=== PATIENT | female | born 1935 | race Caucasian/White ===

== ENCOUNTER 2023-09-20 15:54 | Inpatient (IN) | payer MEDICARE, OTHER ==
[~2023-09-20] VITALS: Ht 165.1 cm; Wt 81.6 kg
[2023-09-20 16:00] VITALS: BP_SYST 150; PULSE 80; RESP 20; TEMP 98; O2SAT 97
[2023-09-20] MEDS ORDERED: GENTAMICIN IN NACL, ISO-OSM 50 ML IV ONE (16:15)
[2023-09-20 17:07] LABS: BASOPHILS % (AUTO) 0.8 % (0.0-2.0); EOSINOPHILS # (AUTO) 0.1 K/uL (0.0-0.4); EOSINOPHILS % (AUTO) 2.3 % (0.0-4.0); HEMATOCRIT 40.2 % (36-48); HEMOGLOBIN 13.1 g/dL (12.0-16.0); LYMPHOCYTES # (AUTO) 1.3 K/uL (1.0-5.5); LYMPHOCYTES % (AUTO) 27.1 % (20.5-51.5); MEAN CORPUSCULAR HEMOGLOBIN 30 pg (27-31); MEAN CORPUSCULAR HGB CONC 33 % (32-36); MEAN CORPUSCULAR VOLUME 93 fL (79.0-98.0); MONOCYTES # (AUTO) 0.6 K/uL (0.0-1.0); MONOCYTES % (AUTO) 12.3 % (1.7-9.3); NEUTROPHILS # (AUTO) 2.7 K/uL (1.8-7.7); NEUTROPHILS % (AUTO) 57.5 % (40.0-70.0); PLATELET COUNT (AUTO) 206 K/uL (130-430); RED BLOOD CELL COUNT(AUTO) 4.31 MIL/uL (4.2-6.2); RED CELL DISTRIBUTION WIDTH 13.9 % (9.0-15.0); WHITE BLOOD COUNT (AUTO) 4.7 K/uL (4.8-10.8)
[2023-09-20 17:31] LABS: ANION GAP 8 (5-15); CALCIUM 9.3 mg/dL (8.4-11.0); CARBON DIOXIDE 28 mmol/L (23-29); CHLORIDE 104 mmol/L (98-107); CREATININE 0.98 mg/dL (0.55-1.30); GLUCOSE 99 mg/dL (74-106); POTASSIUM 4.1 mmol/L (3.5-5.1); SODIUM SERUM 140 mmol/L (136-145); UREA NITROGEN, BLOOD 25 mg/dL (8-21)
[2023-09-20 19:06] LABS: BILIRUBIN,URINE NEGATIVE (NEGATIVE); BLOOD, URINE 2+ (NEGATIVE); CLARITY/URINE SL CLOUDY (CLEAR); COLOR,URINE YELLOW (YELLOW); GLUCOSE,URINE NEGATIVE (NEGATIVE); KETONES,URINE NEGATIVE (NEGATIVE); LEUKOCYTE ESTERASE ,URINE 1+ (NEGATIVE); NITRITE, URINE NEGATIVE (NEGATIVE); PROTEIN URINE TRACE (NEGATIVE); UROBILINOGEN,URINE 0.2 (0.2-1.0)
[2023-09-20 19:18] LABS: BACTERIA,URINE MODERATE /HPF (None Seen); MUCUS,URINE None Seen /LPF (None Seen); RBC,URINE 0-3 /HPF (0-3)
[2023-09-20] MEDS ORDERED: APIX5TAB PO (19:42)
[2023-09-20] MEDS ORDERED: DONE5TAB33 PO (19:42)
[2023-09-20] MEDS ORDERED: PYRI50CA PO (19:42)
[2023-09-20] MEDS ORDERED: MEMA10TA PO (19:42)
[2023-09-20] MEDS ORDERED: METO25TA6 PO (19:42)
[2023-09-20] MEDS ORDERED: FOLI-43 PO (19:42)
[2023-09-20] MEDS ORDERED: CARB1TAB33 PO (19:42)
[2023-09-20] MEDS ORDERED: LOSA-415 PO (19:42)
[2023-09-20] MEDS ORDERED: cloNIDine HCL 0.1 MG TABLET PO PRN (22:30)
[2023-09-20] MEDS ORDERED: HYDROcodone/ACETAMIN 5-325 MG TAB (NORCO/ VICODIN) PO PRN (22:30)
[2023-09-20] MEDS ORDERED: ONDANSETRON HCL 4 MG/2 ML VIAL IVP PRN (22:30)
[2023-09-20] MEDS ORDERED: NALOXONE HCL 0.4 MG/ML AMP (NARCAN) IVP PRN (22:30)
[2023-09-20] MEDS ORDERED: PIPERACILLIN/TAZOBACTAM 3.375 GM/VIAL (ZOSYN) IV ONE (23:20)
[2023-09-20] MEDS: CARBIDOPA/LEVODOPA 25/100 MG TABLET PO SCH (23:45)
[2023-09-20] MEDS: METOPROLOL TARTRATE 25 MG TABLET PO SCH (23:46)
[2023-09-20] MEDS: APIXABAN 2.5 MG TABLET PO SCH (23:47)
[2023-09-20] MEDS: PIPERACILLIN/TAZO 3.375/DEX-IS 50 ML IV SCH (23:48)
[2023-09-21] VITALS (7 sets, daily range): BP systolic 126–174; PULSE 56–88; RESP 17–18; TEMP 97.1–98.6; O2SAT 94–98
[2023-09-21] MEDS: PIPERACILLIN/TAZO 3.375/DEX-IS 50 ML IV SCH (06:06)
[2023-09-21 07:43] LABS: BASOPHILS % (AUTO) 0.7 % (0.0-2.0); EOSINOPHILS # (AUTO) 0.1 K/uL (0.0-0.4); EOSINOPHILS % (AUTO) 2.7 % (0.0-4.0); HEMATOCRIT 41.7 % (36-48); HEMOGLOBIN 13.3 g/dL (12.0-16.0); LYMPHOCYTES # (AUTO) 1.3 K/uL (1.0-5.5); LYMPHOCYTES % (AUTO) 27.2 % (20.5-51.5); MEAN CORPUSCULAR HEMOGLOBIN 30 pg (27-31); MEAN CORPUSCULAR HGB CONC 32 % (32-36); MEAN CORPUSCULAR VOLUME 93 fL (79.0-98.0); MONOCYTES # (AUTO) 0.5 K/uL (0.0-1.0); MONOCYTES % (AUTO) 11.4 % (1.7-9.3); NEUTROPHILS # (AUTO) 2.7 K/uL (1.8-7.7); PLATELET COUNT (AUTO) 191 K/uL (130-430); RED CELL DISTRIBUTION WIDTH 13.7 % (9.0-15.0); WHITE BLOOD COUNT (AUTO) 4.6 K/uL (4.8-10.8)
[2023-09-21 07:50] LABS: ERYTHROCYTE SEDIMENTATION RATE 6 MM/HR (0-20)
[2023-09-21 08:07] LABS: ALANINE AMINOTRANSFERASE 7 U/L (12-78); ALBUMIN 3.4 g/dL (3.4-4.8); ANION GAP 8 (5-15); ASPARTATE AMINOTRANSFERASE 13 U/L (10-37); CALCIUM 9.4 mg/dL (8.4-11.0); CARBON DIOXIDE 29 mmol/L (23-29); CHLORIDE 106 mmol/L (98-107); CREATININE 0.85 mg/dL (0.55-1.30); FREE T4 (FREE THYROXINE) 1.1 ng/dL (0.6-1.6); GLUCOSE 95 mg/dL (74-106); SODIUM SERUM 143 mmol/L (136-145); THYROID STIMULATING HORMONE 0.87 uIu/mL (0.34-4.82); TOTAL BILIRUBIN 0.7 mg/dL (0.0-1.0); TOTAL PROTEIN, SERUM 6.3 g/dL (6.4-8.3); UREA NITROGEN, BLOOD 17 mg/dL (8-21)
[2023-09-21] MEDS: APIXABAN 2.5 MG TABLET PO SCH ×2 (10:13→21:02)
[2023-09-21] MEDS: METOPROLOL TARTRATE 25 MG TABLET PO SCH ×2 (10:14→21:00)
[2023-09-21] MEDS: FOLIC ACID 1 MG TABLET PO SCH (10:14)
[2023-09-21] MEDS: MEMANTINE HCL 5 MG TABLET PO SCH ×2 (10:15→20:59)
[2023-09-21] MEDS: LOSARTAN POTASSIUM 50 MG TABLET (COZAAR) PO SCH ×2 (10:15→20:58)
[2023-09-21] MEDS: CARBIDOPA/LEVODOPA 25/100 MG TABLET PO SCH ×3 (10:19→20:58)
[2023-09-21] MEDS: VITAMIN B COMPLEX WITH C TAB/CAP PO SCH (10:19)
[2023-09-21] MEDS: MEROPENEM 500 MG IVPB PREMIX 50 ML IV SCH (13:51)
[2023-09-21] MEDS: DONEPEZIL HCL 5 MG TABLET (ARICEPT) PO SCH (21:00)
[2023-09-21] MEDS: QUEtiapine FUMARATE 25 MG TABLET PO SCH (21:00)
[2023-09-22] VITALS (7 sets, daily range): BP systolic 113–158; PULSE 53–64; RESP 16–18; TEMP 97–98.5; O2SAT 92–99
[2023-09-22] MEDS: MEROPENEM 500 MG IVPB PREMIX 50 ML IV SCH ×2 (00:50→13:21)
[2023-09-22] MEDS: CARBIDOPA/LEVODOPA 25/100 MG TABLET PO SCH ×3 (09:06→20:49)
[2023-09-22] MEDS: FOLIC ACID 1 MG TABLET PO SCH (09:07)
[2023-09-22] MEDS: APIXABAN 2.5 MG TABLET PO SCH ×2 (09:09→20:50)
[2023-09-22] MEDS: MEMANTINE HCL 5 MG TABLET PO SCH ×2 (09:11→20:48)
[2023-09-22] MEDS: VITAMIN B COMPLEX WITH C TAB/CAP PO SCH (09:11)
[2023-09-22] MEDS: LOSARTAN POTASSIUM 50 MG TABLET (COZAAR) PO SCH ×2 (09:13→20:48)
[2023-09-22] MEDS: METOPROLOL TARTRATE 25 MG TABLET PO SCH ×2 (09:18→20:49)
[2023-09-22] MEDS: DONEPEZIL HCL 5 MG TABLET (ARICEPT) PO SCH (20:48)
[2023-09-22] MEDS: QUEtiapine FUMARATE 25 MG TABLET PO SCH (20:49)
[2023-09-23] MEDS: MEROPENEM 500 MG IVPB PREMIX 50 ML IV SCH (00:50)
[2023-09-23 03:44] VITALS: BP_SYST 118; PULSE 88; RESP 19; TEMP 97.8; O2SAT 96
[2023-09-23 08:00] VITALS: BP_SYST 129; PULSE 70; RESP 18; TEMP 97.7; O2SAT 98
[2023-09-23] MEDS: FOLIC ACID 1 MG TABLET PO SCH (10:04)
[2023-09-23] MEDS: LOSARTAN POTASSIUM 50 MG TABLET (COZAAR) PO SCH (10:04)
[2023-09-23] MEDS: METOPROLOL TARTRATE 25 MG TABLET PO SCH (10:04)
[2023-09-23] MEDS: APIXABAN 2.5 MG TABLET PO SCH (10:05)
[2023-09-23] MEDS: CARBIDOPA/LEVODOPA 25/100 MG TABLET PO SCH ×2 (10:05→15:16)
[2023-09-23] MEDS: MEMANTINE HCL 5 MG TABLET PO SCH (10:05)
[2023-09-23] MEDS: VITAMIN B COMPLEX WITH C TAB/CAP PO SCH (10:14)
[2023-09-23 11:48] VITALS: BP_SYST 110; PULSE 65; RESP 18; TEMP 98.2; O2SAT 95
[2023-09-23] MEDS ORDERED: ERTAPENEM SODIUM 1 GM in NS 50 ML IV SCH (13:00)
== END 2023-09-23 15:45 | disposition home health service (06) | DRG 690 ==
LOC: SED 15:54 → SMU 17:35
PROVIDERS: ADMIT Internal Medicine; ATTEND Internal Medicine
DX: N39.0 Urinary tract infection, site not specified (principal); I82.402 Acute embolism and thrombosis of unspecified deep veins of left lower extremity; B96.4 Proteus (mirabilis) (morganii) as the cause of diseases classified elsewhere; M54.9 Dorsalgia, unspecified; G89.29 Other chronic pain; F03.90 Unspecified dementia, unspecified severity, without behavioral disturbance, psychotic disturbance, mood disturbance, and anxiety; I10 Essential (primary) hypertension; I48.0 Paroxysmal atrial fibrillation; Z79.01 Long term (current) use of anticoagulants; Z79.899 Other long term (current) drug therapy
CPT/HCPCS: 36415; 76376; 76770; 80048; 80053; 81000; 81001; 81015; 83605; 84439; 84443; 85025; 85651-TC; 87086; 93970; 99285; J1335; J1580; J2185; J2405; J2543